=== PATIENT | female | born 2005 ===

== ENCOUNTER 2025-08-18 22:09 | Emergency (ER) | payer OTHER ==
[~2025-08-18] VITALS: Ht 165.1 cm; Wt 81.8 kg
[2025-08-18 22:13] VITALS: TEMP 97.6
[2025-08-18 23:46] LABS: PLATELET COUNT (AUTO) 170 K/uL (150-450); RED BLOOD CELL COUNT(AUTO) 4.39 MIL/uL (4.00-5.20); RED CELL DISTRIBUTION WIDTH 14.9 % (11.5-14.5); WHITE BLOOD COUNT (AUTO) 6.0 K/uL (4.5-11.0)
[2025-08-18] MEDS: SODIUM CHLORIDE 0.9% 1,000 ML IV ONE (23:46)
[2025-08-18 23:54] LABS: CALCIUM, TOTAL 8.7 mg/dL (8.8-10.5); CREATININE 0.82 mg/dL (0.60-1.30); GLOMERULAR FILTR. RATE CALC > 60 mL/min (>60); GLUCOSE,RANDOM 89 mg/dL (70-110); SODIUM SERUM 143 mmol/L (136-145); UREA NITROGEN, BLOOD 9 mg/dL (7-18)
[2025-08-19 01:34] VITALS: BP 92/46; PULSE 83; RESP 18; O2SAT 98
[2025-08-19 01:56] LABS: COVID AG,FIA SOURCE NASAL SWAB
[2025-08-19 02:26] LABS: SARS-COV2 (COVID) ANTIGEN,FIA Negative (Negative)
== END 2025-08-19 03:12 | disposition home or self-care (01) ==
LOC: EMS 22:09
DX: F10.129 Alcohol abuse with intoxication, unspecified (principal); Z20.822 Contact with and (suspected) exposure to COVID-19; Y90.8 Blood alcohol level of 240 mg/100 ml or more
CPT/HCPCS: 99283; 96360; 87426; 80048; 82962; 84703; 85025; 36415; G0480; J7030